=== PATIENT | male | born 1955 | race African-American/Black ===

== ENCOUNTER 2016-03-29 04:24 | Emergency (ER) | payer MEDICARE ==
[2016-03-29] MEDS ORDERED: DUONEB INH ONE (08:36)
== END 2016-03-29 09:47 | disposition home or self-care (01) ==
LOC: ER 04:24
DX: J44.1 Chronic obstructive pulmonary disease with (acute) exacerbation (principal); R11.0 Nausea; S39.012A Strain of muscle, fascia and tendon of lower back, initial encounter; K21.9 Gastro-esophageal reflux disease without esophagitis; Z86.718 Personal history of other venous thrombosis and embolism; Z86.711 Personal history of pulmonary embolism; Z79.899 Other long term (current) drug therapy; F17.210 Nicotine dependence, cigarettes, uncomplicated
CPT/HCPCS: 36415; 71020; 80053; 81003; 83690; 85025; 94640